=== PATIENT | male | born 1975 | race African-American/Black ===

== ENCOUNTER 2018-01-13 20:39 | Emergency (ER) | payer OTHER ==
[2018-01-13 20:43] VITALS: BP 142/57; PULSE 88; TEMP 97.6; BMI 40.1
--- NOTE | 2018-01-13 21:08 | PDOC ---
Suture Removal/Wound Check HPI - History of Present Illness Chief Complaint: Revisit,Wound Recheck Stated Complaint: REVISI Time Seen by Provider: 01/13/18 20:52 History Source: Yes: Patient Treated at: [facility] Date of Last ED visit: 01/11/18 - Previous ED Treatment Type of procedure performed on last visit: Yes: I&D of Abscess Past History - Past Medical History Allergies/Adverse Reactions: Allergies Allergy/AdvReac Type Severity Reaction Status Date / Time No Known Allergies Allergy Verified 01/13/18 20:43 Home Medications: Ambulatory Orders Sulfamethoxazole/Trimethoprim [Bactrim Ds -] 1 tab PO BID 01/13/18 COPD: No Dementia: No - Suicide/Smoking/Psychosocial Hx Smoking History: Current every day smoker Number of Cigarettes Smoked Daily: 4 Information on smoking cessation initiated: Yes 'Breaking Loose' booklet given: 01/13/18 Hx Alcohol Use: No Drug/Substance Use Hx: No Suture Removal/Wound Check PE - Physical Exam Laceration/Wound Check Symptoms: denies: Pain, Fever, Chills, Redness Location of Laceration/Wound: bilateral: Head (well healign abscess to occiput, no erythema, +purulent drainage) *Review of Systems - Review of Systems Constitutional: No: Chills, Fever *Physical Exam - Vital Signs Last Vital Signs Temp Pulse Resp BP Pulse Ox 97.6 F 88 18 142/57 99 01/13/18 20:41 01/13/18 20:41 01/13/18 20:41 01/13/18 20:41 01/13/18 20:41 Medical Decision Making - Medical Decision Making 01/13/18 21:07 42-year-old male, denies any past medical history, was seen in ED 2 days ago for abscess to scalp. Status post I&D and on bactrim. Of note, wound culture so far with negative growth. No pain at this time and denies fever or chills. Patient well-appearing and stable with healing abscess to occiput w/ purulent drainage noted after packing removal. No evidence of re-accumulation. Packing replaced. Patient to follow-up in 2 days for wound check and to continue antibiotics 01/13/18 21:08 *DC/Admit/Observation/Transfer Diagnosis at time of Disposition: Wound check, abscess - Discharge Dispostion Disposition: HOME Condition at time of disposition: Good - Referrals - Patient Instructions Additional Instructions: Your packing was replaced given amount of pus still draining from wound. Keep wound covered and return to ER in 2 days for wound check. Continue taking antibiotics - Post Discharge Activity
== END 2018-01-13 21:20 | disposition home or self-care (01) ==
LOC: JERFT 20:39
DX: Z48.01 Encounter for change or removal of surgical wound dressing (principal)
CPT/HCPCS: 99281-25

== ENCOUNTER 2018-01-17 17:23 | Emergency (ER) | payer OTHER ==
[2018-01-17 17:32] VITALS: BP 141/84; PULSE 95; TEMP 97.9; BMI 40.1
--- NOTE | 2018-01-17 18:29 | PDOC ---
Suture Removal/Wound Check HPI - History of Present Illness Chief Complaint: Revisit,Wound Recheck Stated Complaint: FOLLOW UP Time Seen by Provider: 01/17/18 17:37 History Source: Yes: Patient Exam Limitations: Yes: No Limitations Treated at: [facility] Date of Last ED visit: 01/11/18 - Previous ED Treatment Type of procedure performed on last visit: Yes: I&D of Abscess Tetanus Immunization: Yes: Up to Date Past History - Past Medical History Allergies/Adverse Reactions: Allergies Allergy/AdvReac Type Severity Reaction Status Date / Time No Known Allergies Allergy Verified 01/17/18 17:32 Home Medications: Ambulatory Orders Sulfamethoxazole/Trimethoprim [Bactrim Ds -] 1 tab PO BID 01/13/18 COPD: No Dementia: No - Suicide/Smoking/Psychosocial Hx Smoking History: Current every day smoker Number of Cigarettes Smoked Daily: 5 Information on smoking cessation initiated: No 'Breaking Loose' booklet given: 01/13/18 Hx Alcohol Use: No Drug/Substance Use Hx: No Suture Removal/Wound Check PE - Physical Exam Laceration/Wound Check Symptoms: reports: Resolved *Review of Systems - Review of Systems Able to Perform ROS?: Yes Constitutional: No: Symptoms Reported Integumentary: Yes: Symptoms Reported *Physical Exam - Vital Signs Last Vital Signs Temp Pulse Resp BP Pulse Ox 97.9 F 95 H 18 141/84 99 01/17/18 17:29 01/17/18 17:29 01/17/18 17:29 01/17/18 17:29 01/17/18 17:29 - Physical Exam General Appearance: Yes: Nourished, Appropriately Dressed HEENT: positive: EOMI, [place] Neck: negative: Tender Integumentary: positive: Normal Color, Dry, Warm, Other (occiptal area with packing in place to drained abscess, no drainage no redness) Neurologic: positive: Fully Oriented, Alert, Normal Mood/Affect, Normal Response , Motor Strength 5/5 Medical Decision Making - Medical Decision Making 01/17/18 18:32 cc: packing removal from abscess placed 2 days ago wound is well healed, no drainage , no fluctuance packing removed dc home with strict follow up with general surgeon *DC/Admit/Observation/Transfer Diagnosis at time of Disposition: Wound check, abscess - Discharge Dispostion Disposition: HOME Condition at time of disposition: Improved - Referrals Referrals: Mily Jacobson MD [Staff Physician] - - Patient Instructions Additional Instructions: keep clean and dry follow with the surgeon Dr. Jacobson if any worsening symptoms - Post Discharge Activity
== END 2018-01-17 18:30 | disposition home or self-care (01) ==
LOC: JERFT 17:23
DX: Z48.817 Encounter for surgical aftercare following surgery on the skin and subcutaneous tissue (principal); Z48.01 Encounter for change or removal of surgical wound dressing
CPT/HCPCS: 99281-25

== ENCOUNTER 2024-05-12 04:31 | Day surgery (SDC) | payer OTHER ==
[2024-05-10 13:54] VITALS: BMI 41.3
[2024-05-12 13:40] VITALS: RESP 18
[2024-05-12] MEDS: LIDOCAINE HCL 1% PRESERVATIVE FREE - 30ML VIAL NR ONE (14:20)
[2024-05-12] MEDS: IOHEXOL 180 MG/1 ML ML IJ ONE (14:21)
[2024-05-12] MEDS: DEXAMETHASONE SOD PHOSPHATE 10 MG/1 ML VIAL IVPUSH ONE (14:21)
[2024-05-12 15:05] VITALS: BP 142/82; PULSE 77; TEMP 97.3
== END 2024-05-12 15:07 | disposition home or self-care (01) ==
LOC: JASU-SURG 04:31
PROVIDERS: ATTEND Pain Medicine Pain Medicine
PROC: 3E0R3BZ Introduction of Anesthetic Agent into Spinal Canal, Percutaneous Approach (ICD-10-PCS; 2024-05-12)
PROC: 3E0R33Z Introduction of Anti-inflammatory into Spinal Canal, Percutaneous Approach (ICD-10-PCS; principal; 2024-05-12 14:30)
DX: M54.16 Radiculopathy, lumbar region (principal)
CPT/HCPCS: 76000-TC-FY; J1100